=== PATIENT | male | born 1940 | race Caucasian/White ===

== ENCOUNTER 2016-09-17 20:50 | Emergency (ER) | payer MEDICARE ==
[~2016-09-17] VITALS: Ht 190.5 cm; Wt 81.8 kg
[2016-09-17 20:50] VITALS: BP 170/101; PULSE 70; RESP 20; O2SAT 95
[~2016-09-17 20:50] MED LIST: ASPI-973 PO; ATOR40TA69 PO; CLOP75TA28 PO; LOSA50TA37 PO; METO25TA99 PO; RANI150T11 PO; ZLP10T PO
--- NOTE | 2016-09-17 21:05 | ED.REPORT ---
HPI-Chest Pain 40 and Over Date of Service Sep 17, 2016 ED Provider: Dr. Kristopher Gonzáles M.D. A 76 year old male with a history of CAD, hypertension, hyperlipidemia, GERD, hiatal hernia, and IN (2011, 2015) s/p cardiac stenting presents to the ED with chest pain onset 1800 this evening. The pain began in his epigastrium and moved to the middle of his chest, without radiation. The patient also reports shortness of breath and mild reflux of sour bile. He denies nausea or vomiting. The patient's pain is similar to the chest pain from his recent IN, but without pain in his jaw. The patient denies recent exertional chest pain or exertional shortness of breath. Nursing Notes Stated Complaint: CHEST/ABDOMINAL PAIN Chief Complaint: Chest Pain Nursing Notes Reviewed: Yes Allergies: Coded Allergies: No Known Allergies (Unverified , 09/17/16) Scheduled Aspirin (Aspirin) 81 Mg Tablet 81 MG PO DAILY Atorvastatin Calcium (Atorvastatin Calcium) 40 Mg Tablet 40 MG PO HS Clopidogrel (Clopidogrel) 75 Mg Tablet 75 MG PO DAILY Famotidine (Pepcid) 20 Mg Tablet 20 MG PO BID Losartan Potassium (Losartan Potassium) 50 Mg Tablet 50 MG PO BID Metoprolol Succinate ER (Metoprolol Succinate ER) 25 Mg Tab.er.24h 25 MG PO AM Ranitidine (Zantac) 150 Mg Tablet 150 MG PO BID Zolpidem (Ambien) 10 Mg Tab 10 MG PO HS General Time Seen by MD: 21:04 Chief Complaint Chest pain Hx Obtained From: Patient Arrived By: Walk-in Sudden in Onset?: Yes Onset Occurred: 5 - 8 hours ago Symptom Duration: Since onset Location: : Epigastric: Substernal Quality: Painful Severity: Current: Moderate Severity: Maximum: Moderate Associated with: Reports: Shortness of Breath, Denies: Fever, Nausea, Vomiting Pertinent Negative: Relieved by nothing Context Related History: Reports: Acute coronary syndrome, GERD, Hiatal hernia, Hypertension, Myocardial infarction Recent Healthcare: No recent doctor visit Similar Sx Previous: Yes Past Medical History Past Medical History Inferior IN in 10/2011 STEMI in 03/2016 CAD Arthritis Large hiatal hernia GERD Hyperlipidemia Hypertension Past Surgical History Right knee replacement Hip repair Crdiac stent placement Family History heart disease (mother) Smoking History Former Smoker Social History Alcohol Use: Denies alcohol use Drug Use: Denies drug use Other Social History: Good social support, , Local resident Ambulatory Status Independent Review of Systems Review of Systems Note: + Mild reflux of sour bile Constitutional: Denies: Fever Respiratory: Reports: Shortness of breath, Denies: Non-productive cough Cardiovascular: Reports: Chest pain (Epigastric to substernal) GI: Denies: Nausea, Vomiting Complete sys rev & neg: except as marked. Physical Exam Initial Vital Signs Vital Signs (First) Date Time Temp Pulse Resp B/P Pulse Ox O2 Delivery O2 Flow Rate FiO2 09/17/16 20:50 36.8 70 20 170/101 95 Room Air Initial VS: Reviewed Head / Eyes: Atraumatic, Normocephalic ENT: Conjunctiva normal, No scleral icterus Extremities: Vascular intact, Neuro intact, No swelling Skin: Warm, Dry, No cyanosis Neurologic: Alert, Oriented, Nonfocal Psychiatric: Mood/affect normal, Behavior normal, Normal thought content General/Constitutional: Awake, Alert, No acute distress, Well hydrated Appearance / Presentation: Positive: Uncomfortable Respiratory / Chest: Breath sounds NL, Breath sounds = bilat, No respiratory distress, No chest tenderness Cardiovascular: Heart rate NL, Regular rhythm, Heart sounds NL Abdomen: Soft, Non-tender Interpretation & Diagnostics Lab Results Interpretation Result Diagram: 09/17/16210209/17/162102 Test 09/17/16 21:03 09/17/16 21:05 09/17/16 23:16 White Blood Count 8.0th/mm3 (3.8-10.1) Red Blood Count 4.99mil/mm3 (4.40-5.80) Hemoglobin 15.7g/dL (13.8-17.2) Hematocrit 47.0% (41.0-50.0) Mean Corpuscular Volume 94.2fL (81-100) Mean Corpuscular Hemoglobin 31.5pg (27.0-35.0) Mean Corpuscular Hemoglobin Concent 33.4% (32.0-37.0) Red Cell Distribution Width 13.3% (12.3-15.4) Platelet Count 225bil/L (150-400) Neutrophils (%) (Auto) 69.7% (40-74) Lymphocytes (%) (Auto) 19.1% (14-46) Monocytes (%) (Auto) 9.7% (4-12) Eosinophils (%) (Auto) 1.1% (0-5) Basophils (%) (Auto) 0.3% (0-3) D-Dimer 0.6mg/L (<0.50) Sodium Level 138mEq/L (134-144) Potassium Level 4.0mEq/L (3.5-5.2) Chloride Level 97mEq/L (97-108) Carbon Dioxide Level 25mmol/L (18-29) Blood Urea Nitrogen 15mg/dL (8-27) Creatinine 0.94mg/dL (0.76-1.27) Estimat Glomerular Filtration Rate 82mL/min (>59) Glucose Level 92mg/dL (60-99) Calcium Level 9.7mg/dL (8.5-10.1) Magnesium Level 2.1mg/dL (1.6-2.6) Total Bilirubin 0.4mg/dL (0.0-1.2) Aspartate Amino Transf (AST/SGOT) 27U/L (0-50) Alanine Aminotransferase (ALT/SGPT) 18U/L (0-44) Alkaline Phosphatase 89U/L (25-160) Total Protein 6.7g/dL (6.4-8.4) Albumin 4.4g/dL (3.4-5.0) Hold Silveira Top Tube Received (Received) Troponin T 0.010ug/L (0.0-0.011) ECG Interpretation ECG Interpretation: Sinus rhythm rate 69 Nonspecific intraventricular conduction delay Anterolateral infarct, age indeterminate Time: 21:06 Interpreted by: ED physician ECG Interpretation: Sinus rhythm rate 71 No change from 21:06 Time: 23:21 Interpreted by: ED physician X-Ray Chest Interpretation Chest Xray Interpretation: IMPRESSION: 1. Possible right basilar pneumonia. Recommend clinical correlation. 2. Large hiatal hernia. Dictated by: Amos Lantigua M.D. on 09/17/2016 at 21:33 ED physician also noted right pleural thickening View: Portable, 1 view Interpretation / Wet Read by: Wet read ED physician, Interpret - Radiologist CT Chest Interpretation CONCLUSION: No CT evidence of pulmonary emboli/dissection. There is a large hiatal hernia with compression atelectasis of the adjacent lung. There is coronary artery calcification. Transmitted to the ED by Braulio Saxena M.D. at 09/18/2016 - 12:29:39 AM PST Study type: CT pulm angiogram Interpretation / Wet Read by: Interpret - Radiologist Re-Eval/Medical Decision Med Decision/Clinical Course 76-year-old presents with a story of reflux esophagitis, but is obviously at risk for coronary disease. Enzymes 2 and EKG are stable. D-dimer was elevated and a CT of the chest shows no evidence of pneumonia, a question raised on the plain film, and a large hiatus hernia also seen on the chest x-ray. His problem appears to be hiatus hernia. He is on clopidogrel, so Selected for Acid Suppression at 20 Mg by Mouth Twice a Day. Discharged Now in Stable Condition. Source of Hx: Old records Time of Eval: 22:53 Patient Status: Condition improved Re-Evaluation/Progress Note: Patient rechecked. He had a brief bradycardic and hypotensive episode which improved after fluids. Time of Eval: 23:48 Patient Status: Condition improved Re-Evaluation/Progress Note: Discussed with patient x-ray results and plan for CT. Time of Eval: 00:44 Patient Status: Condition improved Re-Evaluation/Progress Note: Discussed with patient x-ray, lab, and CT results, diagnosis, and plan for discharge. Follow-up and return to the ER instructions given. Patient agrees with plan for care and all questions were addressed. Counseled Regarding: Diagnosis, Lab results, Need for follow-up, When/why to return to ED Discharge & Departure Primary Impression: Hiatal hernia Additional Impressions: GERD (gastroesophageal reflux disease) Esophagitis presence: esophagitis presence not specified Qualified Code: K21.9 - Gastro-esophageal reflux disease without esophagitis S/P coronary artery stent placement Chest pain Non-cardiac chest pain Disposition: Home Discharge Condition All VS Reviewed: Yes Condition: Improved Patient Instructions: Chest Pain (ED), Esophageal Spasm (ED), Gastroesophageal Reflux Disease (ED), Hiatal Hernia (ED) Additional Instructions: Elevate the head of your bed and avoid lying totally flat. Begin with omeprazole twice daily. You still need a stress test to complete your evaluation. Contact your doctor to arrange that. Follow-up with your doctor in the office. Return if any immediate issues. Referrals: Estefania Griffin PA-C (PCP) Scribe Attestation Portions of this note were transcribed by Shilpa Vargas. I, Dr. Gonzáles, personally performed the history, physical exam, and medical decision-making; I reviewed and confirmed the accuracy of the information in the transcribed note. Signed by: Danitza Vu, 09/18/2016, 01:50 copies to: Estefania Griffin PA-C, Christopher W MD Sep 17, 2016 21:05 SHILPA VARGAS Sep 17, 2016 21:08
[2016-09-17 21:14] LABS: BASOPHILS % (AUTO) 0.3 % (0-3); EOSINOPHILS % (AUTO) 1.1 % (0-5); MONOCYTES % (AUTO) 9.7 % (4-12); Mean Corpuscular Hemoglobin 31.5 pg (27.0-35.0); Mean Corpuscular Volume 94.2 fL (81-100); NEUTROPHILS % (AUTO) 69.7 % (40-74); Platelet Count 225 bil/L (150-400)
[2016-09-17] MEDS ORDERED: Alum-Mag Hydrox-Simeth 30 mL Suspension PO ONE (21:20)
[2016-09-17] MEDS ORDERED: Pantoprazole 4 mg/mL 10 mL Inj IVPUSH ONE (21:20)
--- NOTE | 2016-09-17 21:35 | DRSVH ---
PROCEDURE: X-RAY CHEST ONE VIEW, PORTABLE ([id number]) INDICATIONS: chest pain TECHNIQUE: One view of the chest was acquired. COMPARISON: [facility], CR, XR CHEST 1VW (PORTABLE), 04/19/2016, 14:56. FINDINGS: Surgical changes and devices: None. Lungs and pleura: Right basilar opacities are suspicious for infiltrates. No pleural effusions or pn eumothorax. Mediastinum: Mediastinal contours appear normal. Heart size is normal. There is a large hiatal her tracy. Bones and chest wall: No suspicious bony lesions. Overlying soft tissues appear unremarkable. IMPRESSION: 1. Possible right basilar pneumonia. Recommend clinical correlation. 2. Large hiatal hernia. Dictated by: Amos Lantigua M.D. on 09/17/2016 at 21:33 Approved by: Amos Lantigua M.D. on 09/17/2016 at 21:34
[2016-09-17 21:46] LABS: TROPONIN T 0.01 ug/L (0.0-0.011)
[2016-09-17 21:57] LABS: Magnesium 2.1 mg/dL (1.6-2.6)
[2016-09-17 22:10] VITALS: BP 64/49; PULSE 44
[2016-09-17 22:15] VITALS: BP 87/55; PULSE 55
[2016-09-17 22:30] VITALS: BP 118/55; PULSE 69
[2016-09-17] MEDS ORDERED: 0.9% Sodium Chloride 1,000 ML IV ONE (23:25)
[2016-09-17 23:30] VITALS: BP 129/72; PULSE 73; RESP 18; O2SAT 97
[2016-09-18] MEDS ORDERED: FAMO20T PO (00:54)
[2016-09-18 01:21] VITALS: BP 124/78; PULSE 77; RESP 23; O2SAT 99
--- NOTE | 2016-09-18 10:29 | DRSVH ---
PROCEDURE: CT ANGIO CHEST PULMONARY EMBOLISM ([id number]) INDICATIONS: cp, elevated dimer TECHNIQUE: After the administration of intravenous contrast, 2 mm thick sections acquired from the pulmonary api tommy to the posterior costophrenic angles. 3-dimensional maximum intensity projection (MIP) coronal a nd sagittal reformats were then acquired through the thorax. For radiation dose reduction, the follo wing was used: automated exposure control, adjustment of mA and/or kV according to patient size. COMPARISON: None. FINDINGS: Image quality: Excellent. Pulmonary arteries: Pulmonary arteries are normal in size, and demonstrate no intraluminal filling d efects to suggest central pulmonary embolism. Lungs and pleura: Lungs are clear. No pleural effusions or pneumothorax. Central and peripheral ai rways are patent. Mediastinum: Heart size is normal, without pericardial effusion. No mediastinal or hilar adenopathy . Thoracic aorta is normal in caliber and enhancement. Esophagus is normal in caliber, with large h iatal hernia. Bones and chest wall: No suspicious bony lesions. Ribs and thoracic spine appear intact throughout. Thyroid gland is unremarkable. No axillary or supraclavicular adenopathy. Abdomen: Partially visualized left renal cyst. Otherwise, visualized upper abdominal solid organs ap pear normal in the early arterial phase of enhancement. IMPRESSION: 1. No evidence of pulmonary embolism. No effusions or consolidations. 2. Large hiatal hernia. Dictated by: Mitzy Resendiz M.D. on 09/18/2016 at 10:25 Approved by: Mitzy Resendiz M.D. on 09/18/2016 at 10:27
[2016-09-22] MEDS ORDERED: CLOP75TA3 PO (14:43)
[2016-09-22] MEDS ORDERED: NITR0.4T6 SL (14:43)
[2016-11-28] MEDS ORDERED: PANT20T PO (08:57)
[2016-11-28] MEDS ORDERED: CRES20T PO (08:57)
== END 2016-09-18 01:15 | disposition home or self-care (01) ==
LOC: SED 20:50
DX: K44.9 Diaphragmatic hernia without obstruction or gangrene (principal); K21.9 Gastro-esophageal reflux disease without esophagitis; R07.89 Other chest pain; R06.02 Shortness of breath; I11.9 Hypertensive heart disease without heart failure; I25.2 Old myocardial infarction; I25.10 Atherosclerotic heart disease of native coronary artery without angina pectoris; E78.5 Hyperlipidemia, unspecified; Z95.5 Presence of coronary angioplasty implant and graft; Z79.82 Long term (current) use of aspirin; Z87.891 Personal history of nicotine dependence
CPT/HCPCS: 36415; 71010; 71275; 80053; 83735; 84484; 85025; 85379; 93005; 96361; 96374; 96375; 99285; J2270; J7030; Q9967

== ENCOUNTER 2016-09-23 10:52 | Day surgery (SDC) | payer MEDICARE ==
[~2016-09-23] VITALS: Ht 190.5 cm; Wt 83.0 kg
[~2016-09-23 10:52] MED LIST changes: +FAMO20T PO; +NITR0.4T6 SL
[2016-09-23] MEDS ORDERED: OMEP20CA11 PO (12:00)
[2016-09-23 12:01] VITALS: BP 159/86; PULSE 51; RESP 16; O2SAT 98
[2016-09-23] MEDS ORDERED: 0.9% Sodium Chloride 1,000 ML ONE (12:23)
[2016-09-23] MEDS ORDERED: fentaNYL-PF 50 mCg/mL 2 mL Inj ONE (12:23)
--- NOTE | 2016-09-23 13:05 | PCM.ENDEGD ---
EGD Date of Service: Sep 23, 2016 Physician Dwain Walter MD Pre Procedure Diagnosis: Abdominal pain Post Procedure Dx & Findings: Hiatal hernia Dhruv's erosion gastritis Procedure Esophagogastroduodenoscopy PROCEDURE IN DETAIL: The patient was placed in left lateral decubitus position. Bite block was placed. Scope lubricated, placed in posterior pharynx, passed through the cricopharyngeus and esophagus, slowly advanced the entire length of the gastric pouch, pylorus was identified, scope passed through the pylorus and descending portion of duodenum, withdrawn in the antrum, retroflexed upon itself for view of fundus and cardia. Scope was then withdrawn through the oropharynx. Esophagus as it entered in the squamous mucosa showed white shiny mucosa without any ulcer or mass erosion. Z line was at 41 cm. At 41 cm, there appears to be mild Schatzki's ring. Nonobstructive. There was a 10 cm hiatal hernia. Within the hiatal hernia, there were some irritations and erosions consistent with Dhruv's erosions. The stomach showed atrophic mucosa with blunted rugae folds without the stomach. Retroflexion was done. Stomach was easily inflated when deflatable using air. Scope further advanced to the distal duodenum. Duodenum showed normal villous structures were normal. Impression Nonobstructing Schatzki's ring 10 cm hiatal hernia with Dhruv's erosions Atrophic gastritis Biopsies not done due to the Plavix use. Recommendation Await barium study Follow up in GI clinic Presedation Assessment Risks and Benefits Informed consent was obtained from the patient after all risks and benefits including but not limited to drug reaction, infection, pain, bleeding, perforation, as well as alternatives were discussed. Patient monitoring Continuous pulse oximetry, cardiac monitoring, blood pressure monitoring, IV access, and oxygen at 2L per nasal cannula. Periprocedural Fentanyl: Fentanyl 75mcg Incrementally Midazolam: Midazolam 4mg Incrementally Complications There were no periprocedural complications identified. Post Procedure Plan Post Procedure Recommendations 1. Restrict activities today. 2. Resume normal activities in the morning. 3. Resume medications. 4. GERD behavioral modification: - Avoid fatty, acidic, spicy, large meals - Do not lie down after meals - Do not eat or drink anything for at least 2 1/2 hours before going to bed at night - Discontinue tobacco and alcohol - Decrease or avoid caffeine - Avoid chocolate and mints - Decrease weight - Avoid aspirin and non steroidal anti-inflammatory agents (NSAID) such as Aleve, Advil, Mobic, Naproxen, Ibuprofen, etc 5. Add proton pump inhibitor. Take 30 minutes before 1st meal of the day. 6. Patient informed of normal post procedure side effects as bloating, drowsiness, blood streaking in the stool 7. If gastric biopsy reveal H.pylori, continue with appropriate treatment 8. If small bowel biopsy reveals celiac, continue with appropriate treatment 9. Please don't hesitate to call me with any questions Dwain Walter MD Sep 23, 2016 13:05
[2016-09-23 13:07] VITALS: BP 148/74; PULSE 57; RESP 16; O2SAT 99
[2016-09-23 13:18] VITALS: BP 154/103; PULSE 59; RESP 16; O2SAT 94
[2016-11-28] MEDS ORDERED: CRES20T PO (08:57)
[2016-11-28] MEDS ORDERED: PANT20T PO (08:57)
== END 2016-09-23 23:59 | disposition home or self-care (01) ==
LOC: END 10:52
PROVIDERS: ATTEND Internal Medicine
DX: K25.9 Gastric ulcer, unspecified as acute or chronic, without hemorrhage or perforation (principal); K29.70 Gastritis, unspecified, without bleeding; K22.2 Esophageal obstruction; K44.9 Diaphragmatic hernia without obstruction or gangrene; R10.9 Unspecified abdominal pain; I25.10 Atherosclerotic heart disease of native coronary artery without angina pectoris; K21.9 Gastro-esophageal reflux disease without esophagitis; E78.5 Hyperlipidemia, unspecified; I10 Essential (primary) hypertension; Z79.82 Long term (current) use of aspirin; Z79.02 Long term (current) use of antithrombotics/antiplatelets
CPT/HCPCS: 43235; G0500; J2250; J3010; J7030

== ENCOUNTER 2016-11-25 07:24 | Day surgery (SDC) | payer MEDICARE ==
[~2016-11-25 07:24] MED LIST changes: -FAMO20T PO; +Lactated Ringer's 1,000 ML IV ONE; +OMEP20CA11 PO; -RANI150T11 PO
[2016-11-25] MEDS ORDERED: Lidocaine Topical 2% 30 mL Jelly ONE (07:45)
[2016-11-28] MEDS ORDERED: PANT20T PO (08:57)
[2016-11-28] MEDS ORDERED: CRES20T PO (08:57)
== END 2016-11-25 23:59 | disposition home or self-care (01) ==
LOC: END 07:24
PROVIDERS: ATTEND Surgery
DX: K44.9 Diaphragmatic hernia without obstruction or gangrene (principal); Z79.82 Long term (current) use of aspirin; Z79.899 Other long term (current) drug therapy; Z87.891 Personal history of nicotine dependence

== ENCOUNTER 2016-12-03 05:41 | Inpatient (IN) | payer MEDICARE ==
--- NOTE | 2016-11-28 14:31 | PCM.ANEPRE ---
Anesthesia Pre-Op Review Reason for Review: SURGEON'S REQUEST "CARDIAC CONCERNS" Anesthesia Recommendations: Proceed with Procedure Additional Comments 76 y/o M with CAD, last ANAND placed 03/2016 on plavix for paraesophageal hernia repair. Surgery concerned that given size of defect, he is at risk of volvulus. Cardiology has okayed 6 months of plavix for urgent surgery (per surgery note). Anesthesia will certainly not object to cardiology and surgery' s opinions on 1) how to manage ANAND, or 2) the urgency of the surgery. It appears that proper communication between surgery, GI, and cardiology has taken place, and this surgery should therefore proceed. Jossie-operative risk of NH and stent thrombus certainly is higher risk in patients who have ANAND on less than 1 year of plavicx, as it seems, the patient is aware of. But the risk of volvulus has been deemed too likely to wait another few months to further decrease his risk of stent thrombus. Thank you for including anesthesia in the decision making process, and we are aware of this complicated situation. Benson Hays MD November 28, 2016 14:31
[~2016-12-03] VITALS: Ht 190.5 cm; Wt 86.4 kg
[2016-12-03] VITALS (12 sets, daily range): BP systolic 123–155; BP diastolic 70–82; PULSE 61–81; RESP 7–23; O2SAT 92–99
[2016-12-03] MEDS: Lactated Ringer's 1,000 ML IV SCH ×3 (05:00→07:26)
[~2016-12-03 05:41] MED LIST changes: -ATOR40TA69 PO; +CRES20T PO; -Lactated Ringer's 1,000 ML IV ONE; +PANT20T PO
[2016-12-03] MEDS: CeFAZolin Inj 2 GM in IV Premix 1 EACH IV SCH ×2 (06:00→07:45)
[2016-12-03] MEDS ORDERED: Bupivacaine-MPF 0.5% W/EPI 30 mL Inj INFILTRATE ONE (08:22)
[2016-12-03 09:12] LABS: APPEARANCE,URINE HAZY (CLEAR,HAZY); COLOR,URINE YELLOW (YELLOW); OCCULT BLOOD,URINE NEGATIVE (NEGATIVE); UROBILINOGEN,URINE NORMAL (NORMAL)
[2016-12-03] MEDS ORDERED: Lactated Ringer's 1,000 ML IV ONE ×3 (09:26→11:57)
--- NOTE | 2016-12-03 09:46 | PCM.HPANE ---
Patient Data Date of Service: December 03, 2016 Surgeon Admitting Provider: Attending Provider:Whit Robert MD Primary Care Physician:Estefania Griffin PA-C Other Provider:Leeanna Mckeon Anesthesia Reason for Visit Paraesophageal Hernia Ht/WT & BMI Height (Feet): 6 Height (Inches): 3.00 Weight (Kilograms): 84.3 Body Mass Index 23.00 Allergies Coded Allergies: No Known Allergies (Unverified , 11/28/16) Past Anesthesia History Anesthesia History: Denies:: Abnormal Airway, Anesthesia Reactions, Difficult Intubation, Fam Anesthesia Reaction, Fam Malignant Hypertherm, Malignant Hyperthermia Diabetes History Hx Diabetes?: No MRSA MRSA: No Medications Blood Thinner: Aspirin, Plavix Last Dose Blood Thinner: November 26, 2016 Hypertension Medication: Yes (LOSARTAN) Home Meds Incl Beta Jw: Yes Date Beta Jw Taken: December 03, 2016 Time Beta Jw Taken: 0400 Active Scripts Clopidogrel 75 Mg [id number] Mg PO DAILY #30 TABLET Prov:Estela Long MD 04/21/16 Reported Medications Rosuvastatin Calcium (Crestor)20 Mg Omtlig59 Mg PO DAILY 30 Days Ref 0 11/28/[address] (Protonix)20 Mg Ronsaj96 Mg PO BID Ref 0 11/28/16 Omeprazole 20 Mg Capsule.dr20 Mg PO DAILY Ref 0 09/23/16 Nitroglycerin SL 0.4 Mg Tab.subl0.4 Mg SL prn 09/22/16 Aspirin 81 Mg Jddags71 Mg PO DAILY Ref 0 04/19/16 Metoprolol Succinate ER 25 Mg Tab.er.24h50 Mg PO DAILY Ref 0 11/01/14 Losartan Potassium 50 Mg [place]268 Mg PO QPM 11/01/14 Zolpidem (Ambien)10 Mg Tab10 Mg PO HS For Insomnia 11/01/14 Discontinued Scripts Atorvastatin Calcium 40 Mg Qcyhzs88 Mg PO HS #30 TABLET Prov:Estela Long MD 04/21/16 History History of ENT Problems?: Yes HEENT History: Positive for:: Dysphagia Denies:: Abnormal Airway Difficult Intubation Hearing Problem Denture Type: None Teeth Condition: Within Normal Limits Missing Teeth Other HEENT Pertinent History: S/P TONSILLECTOMY Hx of Heart Problems?: Yes Cardiovascular History: Positive for:: 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) Cardiac Surgery (S/P HEART CATH X2 W/ ANAND 10/2011,03/2016) Chest Pain Congestive Heart Failure Coronary Artery Disease (HX [facility] 10/2011,STEMI 03/2016) Heart Murmur (GR II/ MID SYSTOLIC ECHO 07/2016 EF 55-60%) Hypertension (HYPERLIPIDEMIA) Valvular Heart Disease (MILD MR) Denies:: AICD Edema Pacemaker Hx of Respiratory Problem?: Yes Respiratory History: Positive for:: Chest Surgery Cough (CHRONIC) Denies:: COPD Emphysema Tuberculosis Use of C-PAP Machine Hx Neurologic Problems?: No Neurological History: Denies:: CVA Dementia Hx of GI Problems?: Yes Other GI Pertinent History: S/P APPY,B/L INGUINAL HERNIA RPR (CHILDHOOD) Hx of Problems?: No HX of Peritoneal Dialysis: No Male Hx: Denies:: Prostate Problems Scrotal Mass Testicular Surgery Skin History: Denies:: History Skin Disorders? Pressure Ulcers Hx Musculoskeletal Problems?: Yes Musculoskeletal History: Positive for:: Degenerative Joint Joint Replacement (S/P AMBER,RT UNI KNEE ARTHROPLASTY) Musculoskeletal Trauma (S/P HIP HARDWARE REMOVAL) Osteoarthritis Hx of Psycho/Social Problems?: No Psycho Social History: Denies:: Anxiety Hx Depression Hx Surgeries?: Yes (HEART CATH X2 W/ STENTING,RT UNI KNEE,AMBER,APPY,TONSILS,B/L INGUINAL HERNIAS) Hx Any Other Health Problems?: Yes Other History: Positive for:: Hospitalization (CARDIAC) Denies:: Cancer Endocrine Disease Thyroid Disease History Blood Transfusions: Denies:: Blood Transfuse Reaction Blood Transfusions Hx Diabetes: No Hx Alcohol Use: NoHx Substance Use: No Smoking Status: Former Smoker Have You Smoked inLast 12 mo: NoApprox How Many Cigarettes/day: 1 PPD X 10YRS Stop/Bang Treated for Sleep Apnea?: No Do You Have a CPAP Machine?: No S-Snoring: Do You Snore Loudly: No T-Tired: feel tired, fatigued: No O-Obsered: Observed not breath: No P-Blood Pressure: treated: Yes A- Age over 50: Yes N- Neck Large Circumference: No G- Gender Male: Yes BASILIO Risk Assessment: Low Risk, <3 Yes Risk Assessment Category Category 1A: Patient has history of documented sleep apnea, and HAS NOT received any narcotic, sedative or anesthesia administration during this stay. Category 1B: Patient has history of documented sleep apnea, and HAS received any narcotic , sedative or anesthesia administration during this stay Category 2: Patient has SUSPECTED Obstructive Sleep Apnea, and HAS received any narcotic , sedative or anesthesia administration during this stay. Category 3: Patient has SUSPECTED Obstructive Sleep Apnea and HAS NOT received narcotic, sedative or anesthesia administration during this stay. Category 4: Outpatient in Procedural Areas with known sleep apnea or who screen positive for High Risk via the STOP/BANG questionnaire. Exam Exam Vital Signs Vital Signs Date Time Temp Pulse Resp B/P Pulse Ox O2 Delivery O2 Flow Rate FiO2 12/03/16 06:42 35.9 61 16 140/82 99 Room Air General Appearance: Oriented X3 HEENT/AIRWAY: MP 2 Lungs: Clear to Auscultation Heart: Exam Unremarkable Meds/Labs/Diagnostics Admission Meds Current Medications Cefazolin Sodium/ Dextrose 2 gm/ Premix 50 ml @ 100 mls/hr PREOP IV Last administered on 12/03/16 07:45; Start 12/03/16 at 06:00; Stop 12/03/16 at 17:00 Lactated Ringer's (Lr) 1,000 ml @ 120 mls/hr Q8H20M IV Last administered on 07:26; Start 12/03/16 at 05:00; Stop 12/03/16 at 13:19 Bupivacaine HCl/ Epinephrine Bitart 30 ml 30 ml STK-MED ONCE INFILTRATE Last administered on 12/03/16 08:22; Start 12/03/16 at 08:22; Stop 12/03/16 at 08:47 ; Status DC Lactated Ringer's (Lr) 1,000 ml @ ud STK-MED ONCE IV Last administered on 12/03 09:26; Start 12/03/16 at 09:26; Stop 12/03/16 at 09:29; Status DC Labs Test 12/03/16 08:50 Urine Color Yellow (YELLOW) Urine Appearance Hazy (CLEAR,HAZY) Urine pH 6.0 (5.0-8.0) Urine Specific [place] 1.015 (1.003-1.035) Urine Protein Negativemg/dL (NEG,TRACE) Urine Glucose (UA) Negativemg/dL (NEGATIVE) Urine Ketones Negativemg/dL (NEGATIVE) Urine Occult Blood Negative (NEGATIVE) Urine Nitrite Negative (NEGATIVE) Urine Bilirubin Negative (NEGATIVE) Urine Urobilinogen Normalmg/dL (NORMAL) Urine Leukocyte Esterase Negative (NEGATIVE) Urine RBC 0-2/hpf (0-2) Urine WBC 0-5/hpf (0-5) Urine Epithelial Cells Occasional/hpf (NONE-MOD) Urine Crystals Amorphous urates (NONE Urine Bacteria None/hpf (NONE-FEW) Urine Hyaline Casts None/lpf (NONE) Urine Granular Casts None seen (NONE SEEN) Urine Waxy Casts None seen (NONE SEEN) Urine Red Blood Cell Casts None seen (NONE SEEN) Urine White Blood Cell Casts None seen (NONE SEEN) Urine Mucus None seen (None Seen) Urine Trichomonas None seen (NONE SEEN) Urine Yeast None (NONE SEEN) Urinalysis Comment None Urine Culture Reflexed Not indicated Plan Impression Patient chart reviewed, patient interviewed and anesthestic plan with risks, benefits, and alternatives discussed, and informed consent obtained. NPO per Anesth. Guidelines: Yes ASA Physical Status: ASA3 Severe Disease Anesthetic Plan: GA Bene/Risks/Altern/Consents: Yes HP Complete Prior to Induction: Yes Other Discussed higher risk of instent thrombosis in setting of less than 1 yr of plavix. In setting of urgency of hernia repair, we accept risk of this in settin gof high mobidity of gastric volvulus or bowel ischemia. Benson Naqvi MD December 03, 2016 09:46
[2016-12-03] MEDS ORDERED: Lactated Ringer's 500 ML IV PRN (09:47)
[2016-12-03] MEDS ORDERED: Lactated Ringer's 1,000 ML IV SCH (09:47)
[2016-12-03] MEDS ORDERED: Dexamethasone 4 mg/mL Inj IVPUSH PRN (09:50)
[2016-12-03] MEDS ORDERED: Phenylephrine 10,000 mCg/mL Inj IVPUSH PRN (09:50)
[2016-12-03] MEDS ORDERED: EPHEDrine Sulfate 50 mg/mL Inj IVPUSH PRN (09:50)
[2016-12-03] MEDS ORDERED: HYDROmorphone 1 mg/mL Inj IVPUSH PRN (09:50)
[2016-12-03] MEDS ORDERED: fentaNYL-PF 50 mCg/mL 2 mL Inj IVPUSH PRN (09:50)
[2016-12-03] MEDS ORDERED: MetoCLOpramide 5 mg/mL 2 mL Inj IVPUSH PRN ×2 (09:50→12:20)
[2016-12-03] MEDS ORDERED: Ondansetron 2 mg/mL 2 mL Inj IVPUSH PRN (09:50)
[2016-12-03] MEDS ORDERED: ProchlorPERazine 5 mg/mL 2 mL Inj IVPUSH PRN (12:20)
[2016-12-03] MEDS ORDERED: Acetaminophen 32 mg/mL 5 mL Liquid PO SCH (12:20)
--- NOTE | 2016-12-03 12:28 | PCM.SURGOP ---
Surgical Operative Report Date of Service: December 03, 2016 Pre Operative Diagnosis Symptomatic paraesophageal hernia Post Operative Diagnosis Symptomatic paraesophageal hernia Procedure: 1. Laparoscopic paraesophageal hernia repair with Toupet fundoplication 2. Laparoscopic splenic biopsy Surgeon and Search Marketing Analyst: Surgeon: Whit Robert M.D. Assistants: Giacomo Alas M.D.; Ike Rendon PA-C; Yeyo Joseph MS3 Surgical assistants were necessary for dissection, retraction, and safe completion of the procedure. Indication for Procedure This is a 76-year-old man who presented with dysphagia and epigastric pain radiating to the chest. He underwent complete workup and was found to have a large paraesophageal hernia. Cardiac sources of pain were ruled out. He had a history of drug-eluting stent placement in March 2016 and a history of abdominal aortic aneurysm 3.7 cm in size. Upper endoscopy revealed Dhruv's erosions and a Schatzki ring as well as a large paraesophageal hernia. Esophageal manometry revealed normal peristalsis. Discussions were held with his ice cream scooper regarding the risk of holding Plavix in the perioperative period, and the recommendation was for aspirin to be continued. Repeat retroperitoneal ultrasound showed that the aneurysm was stable. Due to his severe symptoms, the patient was scheduled for paraesophageal hernia repair. Findings: 1. Large paraesophageal hernia with approximately 2/3 of the stomach in the chest. 2. At the completion of the procedure, there is 5 cm of intra-abdominal esophagus. A toupet fundoplication was performed. 3. Lobular splenic neoplasm, biopsied. Procedure Details The patient was brought to the operating room and placed in supine position. General endotracheal anesthesia was smoothly induced. A warming blanket and SCDs were placed. The patient was repositioned into low lithotomy with the left arm tucked. Antibiotics were infused. The operative field was prepped and draped in a sterile fashion. A pause was performed to confirm the correct patient, procedure, and site. The abdomen was accessed using a Veress needle in the left upper quadrant after controlling the fascia and was insufflated. An 11 mm Optiview port was inserted and intraperitoneal insufflation began. An 11 mm port was then placed in the mid abdomen just to the left of midline. The 5 mm port was placed in the mid abdomen laterally on the left. A 5mm liver retractor was used with placement in a right lateral position. A 5mm trocar was placed in the right upper quadrant. An additional 5 mm port was placed in the left mid abdomen for the cardiology physician assistant's left hand. The stomach was identified and carefully reduced out of the mediastinum. The short gastrics were taken down using LigaSure device. During this portion of the procedure, a lobular splenic neoplasm was identified, worrisome for malignancy. Therefore, after careful identification of the splenic artery, a small portion of it was removed with the LigaSure device and hemostasis was achieved. 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 Dissection then proceeded at the hiatus starting on the left. The plane between the hernia sac and pleura was entered and the hernia sac was carefully removed from the mediastinum. No defects were made in the left pleura during this portion of the dissection. The gastrohepatic ligament was then divided up to the right megan and the right sided dissection was completed with care taken to preserve the entire megan and both vagi. A small right pneumothorax was created during this portion of the procedure, which did not have hemodynamic effects during the operation. It was not closed. Once the esophagus was fully dissected circumferentially, a Gwendolyn drain was then placed around the esophagus at the gastroesophageal junction for retraction to facilitate a more proximal esophageal dissection. This proceeded proximally until there was 5 cm of intra- abdominal esophagus. The crural closure was then performed. Six 2-0 silk stitches were placed to reapproximate the posterior crura with minimal tension. One anterior stitch was placed as well. The reduced hernia sac was removed using the LigaSure device, with care taken to avoid injury to the stomach, esophagus, or vagus during this portion of the procedure. Attention was turned to the to Toupet fundoplication. A Toupet was chosen due to data demonstrating that it is equivalent for postoperative reflux but improves postoperative dysphagia and gas bloat, and the risk of bougie placement is avoided. A marking stitch was placed on the posterior fundus, 3 cm distal to the gastroesophageal junction and 2 cm posterior to the greater curvature. This was brought around posteriorly to align the geometry of the fundoplication. The first stitch was placed in the fundus just proximal to the marking stitch, to the esophagus at and 11 o'clock position, and to the right megan at the 11 o'clock position. The second stitch was placed from the posterior aspect of the right fundoplication to the bilateral crura posteriorly. The [place] drain was removed. Three additional stitches were then placed from the right side of the fundoplication to an 11 o'clock position on the esophagus. Care was taken to avoid inclusion of the anterior vagus in the stitches. The marking stitch was removed. Attention was then turned to the left side of the wrap. An appropriate position on the fundus was chosen to create symmetrical geometry of the fundoplication. The first stitch on the left was placed from the wrap to the esophagus to the megan, again with care taken to avoid inclusion of the anterior vagus in the stitch. Three additional sutures were then placed from the wrap to the esophagus, each 1 cm distal to the previous one. Once the procedure was complete, the 11 mm port site in the left mid abdomen was closed with an interrupted 2-0 PDS using a fascial closure device. The remaining ports were removed under direct vision and the abdomen was desufflated. 0.5% Marcaine with epinephrine was infused at all port sites. Skin was closed with 4-0 Monocryl. Sterile dressings were placed. All sponge, instrument, and needle counts were correct at the end of the procedure. The patient was awakened from general anesthesia and taken to the postoperative care unit in good condition. Complications There were no periprocedural complications identified. Surgical Specimen Removed: Yes Specimen sent to Pathology: Yes Surgical Specimen description: Laparoscopic splenic biopsy Anesthetic Plan: GA Grafts, Implants: None Output, Estimated Blood Loss: 10 (ml) Blood Administration during ponce: No Whit Robert MD December 03, 2016 12:28
[2016-12-03 12:56] LABS: Mean Corpuscular Hemoglobin 31.4 pg (27.0-35.0); Mean Corpuscular Volume 95.6 fL (81-100)
[2016-12-03] MEDS ORDERED: EPHEDrine/NS 5 mg/mL 5 mL Syringe ONE (13:06)
[2016-12-03] MEDS ORDERED: Succinylcholine Chloride 20 mg/mL 5 mL Inj ONE (13:06)
[2016-12-03] MEDS ORDERED: Ketamine 10 mg/mL 20 mL Inj ONE (13:06)
[2016-12-03] MEDS ORDERED: Dexamethasone 4 mg/mL Inj ONE (13:06)
[2016-12-03] MEDS ORDERED: Rocuronium 10 mg/mL 5 mL Inj ONE (13:06)
[2016-12-03] MEDS ORDERED: fentaNYL-PF 50 mCg/mL 2 mL Inj ONE (13:06)
[2016-12-03] MEDS ORDERED: Ondansetron 2 mg/mL 2 mL Inj ONE (13:06)
[2016-12-03] MEDS ORDERED: Phenylephrine/NS 100 mCg/mL 10 mL Syringe IVPUSH ONE (13:06)
[2016-12-03] MEDS ORDERED: Propofol 10,000 mCg/mL 20 mL Inj ONE (13:06)
--- NOTE | 2016-12-03 13:30 | PCM.ANEP1 ---
Post Anesthesia Phase 1 PACU Phase 1 Assessment Date of Service: December 03, 2016 Vital Signs Vital Signs Date Time Temp Pulse Resp B/P Pulse Ox O2 Delivery O2 Flow Rate FiO2 12/03/16 13:20 36.5 66 18 155/80 95 Nasal Cannula 2.50 12/03/16 12:55 67 17 137/72 97 Nasal Cannula 2 12/03/16 12:50 66 13 136/71 94 Nasal Cannula 2 12/03/16 12:45 67 16 129/70 92 Room Air 12/03/16 12:35 36.2 70 7 138/70 99 Simple Mask 8 12/03/16 12:30 67 23 140/81 98 Simple Mask 8 12/03/16 12:25 72 14 142/72 98 Simple Mask 8 12/03/16 12:20 75 13 140/74 97 Simple Mask 8 12/03/16 12:15 74 15 141/72 97 Simple Mask 8 12/03/16 12:12 36.6 75 15 141/72 97 Simple Mask 8 12/03/16 06:42 35.9 61 16 140/82 99 Room Air Anesthetic Administered: GA Level of Alertness: Sleepy, easy to arouse Pain: No Nausea or Vomiting: No Cardiovascular Function and Hy: Yes Oxygen Delivery: Simple Mask Lungs: Clear to Auscultation Complications: No Follow up Care: No Benson Naqvi MD December 03, 2016 13:30
[2016-12-03] MEDS ORDERED: Acetaminophen 32.5 mg/mL 20 mL Liquid ONE (13:31)
[2016-12-03] MEDS: Dextrose 5% Lactated Ringer's 1,000 ML IV SCH (13:40)
[2016-12-03] MEDS: Heparin 5,000 Unit/mL Inj SUBQ SCH ×2 (13:57→22:32)
[2016-12-03] MEDS: Ondansetron 2 mg/mL 2 mL Inj IVPUSH PRN (14:11)
[2016-12-03] MEDS ORDERED: Acetaminophen 32.5 mg/mL 20 mL Liquid PO SCH (16:13)
[2016-12-03] MEDS: oxyCODONE 1 mg/mL 5 mL Liquid PO PRN ×2 (18:28→22:25)
--- NOTE | 2016-12-03 19:48 | NUR ---
Post Op Patient received to room 1021 at approx 1300 s/p paraesophageal hernia repair. patient noted to have 5 lap sites cdi with band aids . Patient complained of throat discomfort given Tylenol elixir which helped some . Patient taking ice chips without swallowing difficulty but did have some nausea which was received with zofran.
[2016-12-03] MEDS: Acetaminophen 32.5 mg/mL 20 mL Liquid PO SCH (22:24)
[2016-12-04] VITALS (9 sets, daily range): BP systolic 86–142; BP diastolic 50–79; PULSE 64–78; RESP 17–20; O2SAT 93–96
[2016-12-04] MEDS: Acetaminophen 32.5 mg/mL 20 mL Liquid PO SCH ×4 (01:30→22:08)
--- NOTE | 2016-12-04 02:30 | NUR ---
Pain Pt reports sore throat and general abdominal discomfort. 5 x sites with bandaids are CDI. PO apap elixer and PO oxy elixer are given, ice chips and sherbert also helpful with throat irritation. Parameters given by Dr Kingsley for losartan- metroprolol to be restarted in AM. D5 LR infuisng at 80 ml/h. Pt requests supplemental O2 removed- kept on pulse ox to monitor SaO2. Care continues Addendum: 12/04/16 at 1833 by MELISA KAY RN Correction, per Dr Robert
[2016-12-04] MEDS: Dextrose 5% Lactated Ringer's 1,000 ML IV SCH ×2 (03:11→18:41)
[2016-12-04] MEDS: Heparin 5,000 Unit/mL Inj SUBQ SCH ×3 (05:50→22:08)
[2016-12-04 06:13] LABS: Mean Corpuscular Hemoglobin 31.3 pg (27.0-35.0); Mean Corpuscular Volume 96.2 fL (81-100)
[2016-12-04] MEDS: oxyCODONE 1 mg/mL 5 mL Liquid PO PRN ×3 (07:24→23:26)
--- NOTE | 2016-12-04 08:11 | PCM.DISURG ---
Surgical Discharge Instruction Date of Service December 04, 2016 Dates of Hospitalization Date of Hospital Admission December 03, 2016 at 13:05 Providers Admitting Physician: Whit Robert MD Primary Care Physician: Estefania Griffin PA-C Attending Physician: Whit Robert MD Discharge Diagnosis Discharge Diagnosis Symptomatic paraesophageal hernia Post Operative diagnosis Symptomatic paraesophageal hernia Diet Discharge Diet: Other (liquid/pureed x 2 weeks. All meds crushed/liquid x 2 weeks.) Activity Discharge Activity-General: Be up and about, No lifting >15 pounds for 2 weeks Dressing and Incisional Care Dressing Care: Allow Steri Stripes to fall off, Remove outer dressing after 24 hrs Hygiene: May shower Additional Instructions Discharge Instructions Medications should be crushed/pureed. Follow Up Plan Follow Up Plan Follow up in [address] Robert. Call your provider for: Fever, Chills, Shortness of breath, Increasing abdominal pain, Nausea, Vomiting, Increasing wound pain, Discharge @ incision, pus discharge Whit Robert MD December 04, 2016 08:11
[2016-12-04] MEDS ORDERED: OXYC5SOL11 PO (08:13)
[2016-12-04] MEDS ORDERED: METO25TA6 PO (08:13)
--- NOTE | 2016-12-04 08:14 | PCM.PNSURG ---
Subjective Visit Information: Reason for Visit Paraesophageal Hernia Surgery/Surgery Date LAPRASCOPIC PARAESOPHAGEAL HERNIA REPAIR 12/03/16 Post-Op Day # Date of Admission: December 03, 2016 at 13:05 Hospital Day # Subjective: Stable overnight. PO 1318, no nausea/vomiting. Vitals normal. ASA and metoprolol yesterday am; scheduled for am doses today. Hct 38, WBC 9. Objective Vital Sign- Last 8 Hours Date Time Temp Pulse Resp B/P Pulse Ox O2 Delivery O2 Flow Rate FiO2 12/04/16 00:54 36.7 75 17 126/79 96 Room Air Intake and Output- Last 8 Hour 12/04/16 Cumulative From/Thru 07:00 11/28/16 08:57 - 12/04/16 05:53 Intake Total 2183 ml 6333 ml Output Total 500 ml 1550 ml Balance 1683 ml 4783 ml Intake Oral 918 ml 1318 ml IV Total 1265 ml 5015 ml Output Urine Total 500 ml 1510 ml Estimated Blood Loss 40 ml # Bowel Movements 0 0 General: Alert, Oriented X3, Cooperative, No Acute Distress Abdomen: Soft, Appropriately tender, Non-distended Result Diagram: 12/04/16 0530 12/04/16 0530 Assessment & Plan Impression POD1 LAP PEH repair doing well Problems: Plan FLD Haji is out, await void Nutrition c/s Liquid/crushed meds Likely discharge later today Whit Robert MD December 04, 2016 08:14
--- NOTE | 2016-12-04 10:36 | NUR ---
Social Work- Initial Assessment/Readiness for Discharge Data: See Initial Assessment. Pt is a 76 year old male admitted 12/03/16 for paraesophageal hernia per H&P. Pt's insurance is [employer] and [employer]. Pt's PCP is Estefania Griffin PA-C. Pt's readmit risk score is 2. SW met with pt at bedside regarding discharge plan, SW role explained. Pt is alert and oriented x3. Pt resides in [place] in a home with his SO Roxie [phone], where he remains independent with ADLs. [place], continues to drive. Pt has no HH or SNF history, pt has no LTC or VA insurance. Pt's completed Advance Directives are on file in the chart, DPOA is not designated. SW encouraged this paperwork to be brought in, pt states DPOA would be SO Roxie. Pt to discharge home with SO to transport via POV. No anticipated discharge needs. SW will continue to follow if needs arise. Assessment: [place]. Plan: Pt to discharge home with SO to transport via POV. No anticipated discharge needs. SW will continue to follow if needs arise. NI Bonilla Addendum: 12/04/16 at 1038 by DAYRON GREY Amended: Links added.
--- NOTE | 2016-12-04 16:10 | NUR ---
Bladder Scan Bladder scan amount 295mL Pt increasing fluid intake, will continue to monitor Addendum: 12/04/16 at 1611 by NORMAN TURPIN Amended: Links added.
--- NOTE | 2016-12-04 19:26 | NUR ---
Voiding/BP Pt Castellanos pulled at 0600 and pt unable to void. Bladder scan done at 1300 and 158. Pt encouraged to drink PO fluids and paged. MD in endoscopy and will call back. Repeat BS 295. Pt able to void 100ml at 1700. Pt's wfie states it's not abnormal for pt to go all day with only voiding once. MD talked with pt and advised to continue to monitor and pt will stay the night again with plan for discharge in AM. Also gave verbal orders to place castellanos if bladder scan is over 700 and pt unable to void. Pt BP also low at 86/50. Metoprolol AM dose withheld, due to low BP. Repeatedly check BP and when it was WNL, metoprolol pulled and when went to give BP was 110/65. Withheld again and since PM dose was due in 2 hours, store gift wrap associate aware.
[2016-12-04] MEDS: Ondansetron 2 mg/mL 2 mL Inj IVPUSH PRN (19:41)
[2016-12-05] MEDS: Acetaminophen 32.5 mg/mL 20 mL Liquid PO SCH ×2 (01:30→07:30)
--- NOTE | 2016-12-05 04:41 | NUR ---
Urinary Retention Throughout the shift pt voided about 400mls naturally, PVR was 888 after second attempt at urinating. Haji was inserted per order, with an immediate return of 800. Pt was instantly relieved of bladder pain/pressure, pain level went from a 9 to a 5/10. Shortly after, medicated with [place] for incisional pain. Resolved.
[2016-12-05 06:07] VITALS: BP 128/76; PULSE 67; RESP 17; O2SAT 95
[2016-12-05] MEDS ORDERED: TAMS0.4C98 PO (07:32)
--- NOTE | 2016-12-05 08:36 | PCM.PNSURG ---
Subjective Visit Information: Reason for Visit Paraesophageal Hernia Surgery/Surgery Date LAPRASCOPIC PARAESOPHAGEAL HERNIA REPAIR 12/03/16 Post-Op Day # Date of Admission: December 03, 2016 at 13:05 Hospital Day # Subjective: Urinary retention overnight, castellanos re-inserted, 800 mL out immediately, it has now been in place >12 hours. BP down to 80s yesterday but up into 120s now. Awake/alert/good UOP, tolerating FLD, no other concerns. Objective Vital Sign- Last 8 Hours Date Time Temp Pulse Resp B/P Pulse Ox O2 Delivery O2 Flow Rate FiO2 12/05/16 06:07 36.6 67 17 128/76 95 Room Air Intake and Output- Last 8 Hour 12/05/16 Cumulative From/Thru 06:59 11/28/16 08:57 - 12/05/16 06:34 Intake Total 1741 ml 9931 ml Output Total 2300 ml 4125 ml Balance -559 ml 5806 ml Intake Oral 800 ml 3218 ml IV Total 941 ml 6713 ml Output Urine Total 2300 ml 4085 ml Estimated Blood Loss 40 ml # Bowel Movements 0 0 General: Alert, Oriented X3, No Acute Distress Abdomen: Soft, Appropriately tender Result Diagram: 12/04/16 0530 12/04/16529 Assessment & Plan Impression POD2 PEH repair Problems: Plan DC castellanos again; start flomax; if he retains again, discharge with castellanos in place Restart Plavix today DC MIVF Whit Robert MD December 05, 2016 08:36
[2016-12-05] MEDS: Heparin 5,000 Unit/mL Inj SUBQ SCH (09:21)
[2016-12-05 12:52] VITALS: BP 93/57; PULSE 83; RESP 18; O2SAT 95
--- NOTE | 2016-12-05 15:00 | NUR ---
Student Nurse Note Voiding post castellanos d/c Castellanos was d/c'd at 0940. Patient's first void was 300cc out with PVR of 174cc after bladder scan. Second PVR was 75cc. paged for update. Care continues.
--- NOTE | 2016-12-05 16:10 | NUR ---
Student Nurse Note Discharge All discharge instructions and medication teaching complete, patient states he understands. Patient is voiding spontaneously with PVRs of less than 200. Belongings with patient. Patient left unit ambulating independently to home with family.
--- NOTE | 2016-12-06 08:23 | NUR ---
Social Work- Discharge Data: Pt discharged last night. Pt is independent at baseline. Pt discharged home with SO to transport via POV. No discharge needs. Assessment: [place]. Plan: Pt discharged home with SO to transport via POV. No discharge needs. Anupama Ford MSW
--- NOTE | 2016-12-07 13:13 | PCM.DC.SUR ---
Discharge Summary Date of Service: Date of Hospital Admission: December 03, 2016 at 13:05 Date of Operation(s): 12/03/2016 Date of Discharge: 12/05/2016 Diagnosis at Time of Discharge Primary diagnosis: Symptomatic paraesophageal hernia Other chronic conditions: 1. Coronary artery disease 2. Hypertension 3. Hyperlipidemia 4. Abdominal aortic aneurysm 5. Former cigarette smoker Problems: Operation 1. Laparoscopic paraesophageal hernia repair with Toupet fundoplication 2. Laparoscopic splenic biopsy Brief History and Physical: This is a 76-year-old man who presented with dysphagia and epigastric pain radiating to the chest. He underwent complete workup and was found to have a large paraesophageal hernia. Cardiac sources of pain were ruled out. He had a history of drug-eluting stent placement in March 2016 and a history of abdominal aortic aneurysm 3.7 cm in size. Upper endoscopy revealed Dhruv's erosions and a Schatzki ring as well as a large paraesophageal hernia. Esophageal manometry revealed normal peristalsis. Discussions were held with his service car driver regarding the risk of holding Plavix in the perioperative period, and the recommendation was for aspirin to be continued. Repeat retroperitoneal ultrasound showed that the aneurysm was stable. Consultants: None Hospital Course: The patient was admitted and underwent the above-mentioned operations without complication. The following day he experienced blood pressure lability. Diet was advanced. He was stable for discharge on the second postsurgical day. On the night of his first postsurgical day the patient experienced urinary retention and Haji catheter was placed. This was removed the next day and the patient was able to void with minimal residual prior to discharge. Pathology: None Disposition: The patient was discharged to home on a full liquid diet with crushed medications on his second postsurgical day. Follow-up Plan: He will follow-up in the office with Dr. Robert in 2 weeks. Aspirin (Aspirin) 81 Mg Tablet 81 MG PO DAILY (Reported) Clopidogrel (Clopidogrel) 75 Mg Tablet 75 MG PO DAILY Losartan Potassium (Losartan Potassium) 50 Mg Tablet 100 MG PO QPM (Reported) Metoprolol Tartrate (Metoprolol Tartrate) 25 Mg Tablet 25 MG PO BID Nitroglycerin SL (Nitroglycerin SL) 0.4 Mg Tab.subl 0.4 MG SL prn (Reported) Rosuvastatin Calcium (Crestor) 20 Mg Tablet 20 MG PO DAILY (Reported) Tamsulosin (Flomax) 0.4 Mg Capsule 0.4 MG PO DAILY Zolpidem (Ambien) 10 Mg Tab 10 MG PO HS (Reported) oxyCODONE (oxyCODONE) 5 Mg/5 Ml Solution 5-10 MG PO Q4H PRN PRN For Severe Pain copies to: Estefania Griffin PA-C; Dwain Walter MD, Fred H PA-C December 07, 2016 13:13
== END 2016-12-05 16:14 | disposition home or self-care (01) | DRG 328 ==
LOC: SAS 05:41 → OBSVTOIN 13:05 → OSC 13:05
PROVIDERS: ADMIT Surgery; ATTEND Surgery
PROC: 07BP3ZX Excision of Spleen, Percutaneous Approach, Diagnostic (ICD-10-PCS; 2016-12-03)
PROC: 0BQS4ZZ (ICD-10-PCS; 2016-12-03)
PROC: 0BQR4ZZ (ICD-10-PCS; 2016-12-03)
PROC: 0DV44ZZ Restriction of Esophagogastric Junction, Percutaneous Endoscopic Approach (ICD-10-PCS; principal; 2016-12-03 07:30)
DX: K44.9 Diaphragmatic hernia without obstruction or gangrene (principal); D18.1 Lymphangioma, any site; I10 Essential (primary) hypertension; E78.5 Hyperlipidemia, unspecified; I25.10 Atherosclerotic heart disease of native coronary artery without angina pectoris; Z87.891 Personal history of nicotine dependence; I71.4 Abdominal aortic aneurysm, without rupture